=== PATIENT | female | born 1975 | race Two or more races ===

== ENCOUNTER 2017-07-24 10:19 | Emergency (ER) | payer SELFPAY ==
[2017-07-24] MEDS: LIDOCAINE WITH 8.4% SOD BICARB 3 ML DISP.SYRIN. INJ (11:10)
[2017-07-24] MEDS: DIPHTH,PERTUSS(ACELL),TET TOX 0.5 ML DISP.SYRIN. VAX IM (11:11)
== END 2017-07-24 11:53 | disposition home or self-care (01) ==
LOC: ER 10:19
DX: S61.511A Laceration without foreign body of right wrist, initial encounter (principal); I10 Essential (primary) hypertension; Z90.49 Acquired absence of other specified parts of digestive tract; W25.XXXA Contact with sharp glass, initial encounter; Y93.89 Activity, other specified; Y92.89 Other specified places as the place of occurrence of the external cause; Y99.8 Other external cause status
CPT/HCPCS: 12001; 73110; 90471; 90715; 99284-25